=== PATIENT | female | born 1980 | race Caucasian/White ===

== ENCOUNTER 2016-05-23 11:36 | Outpatient (CLI) | payer MEDICAID ==
[2016-05-23 12:08] LABS: Cholesterol 223 mg/dL (< 200 Desired); HDL Cholesterol 32 mg/dL (>60 Neg Risk); Triglycerides 462 mg/dL (Less than 150)
== END 2016-05-23 11:37 | disposition home or self-care (01) ==
LOC: MADLABBHPM 11:36
PROVIDERS: ATTEND Family Medicine
DX: E78.5 Hyperlipidemia, unspecified (principal)
CPT/HCPCS: 36415; 80061

== ENCOUNTER 2016-10-17 12:16 | Outpatient (CLI) | payer OTHER ==
[2016-10-17 12:53] LABS: Cardiac Risk 6.7 (Less than 4.5)
[2016-10-17 13:01] LABS: #Basophils 0.1 thou/uL (0.0-0.2); #Eosinphils 0.2 thou/uL (0.0-0.7); #Monocytes 0.6 thou/uL (0.11-0.59); %Basophils 1.1 % (0.0-1.0); %Lymphocytes 33.4 % (21.0-51.0); %Monocytes 6.8 % (0.0-10.0); %Neutrophils 56.7 % (42.0-75.0); Hemoglobin 14.7 g/dL (12.0-16.0); Mean Corpuscular HGB CONC 32.9 g/dL (32.0-36.0); Mean Corpuscular Hemoglobin 30.3 pg (27.0-31.0); Platelet Count 274 thou/uL (130-400); Red Blood Cell (RBC) Count 4.84 mill/uL (4.20-5.40); White Blood Cell (WBC) Count 8.9 thou/uL (4.8-10.8)
== END 2016-10-17 12:17 | disposition home or self-care (01) ==
LOC: MADLABBHPM 12:16
PROVIDERS: ATTEND Family Medicine
DX: E78.5 Hyperlipidemia, unspecified (principal); R00.2 Palpitations
CPT/HCPCS: 36415; 80061; 84443; 85025; 93005; 93010

== ENCOUNTER 2017-05-10 00:29 | Emergency (ER) | payer MEDICAID, SELFPAY ==
[2017-05-10] MEDS ORDERED: Ketorolac Tromethamine 60 MG/2 ML VIAL ONE (00:55)
--- NOTE | 2017-05-10 08:29 | RAD ---
RIGHT FOOT 3 VIEWS: HISTORY: A 36-year-old female with a history of right foot pain following an injury. FINDINGS: Minimal soft tissue fullness over the anterior aspect of the forefoot. No fracture, dislocation, or other acute process. IMPRESSION: Unremarkable right foot. POS: [facility]
--- NOTE | 2017-05-10 08:31 | RAD ---
RIGHT TIBIA AND FIBULA 2 VIEWS: HISTORY: A 36-year-old female with a history of right lower leg pain following an injury. IMPRESSION: No fracture, dislocation, or other acute process. POS: [facility]
--- NOTE | 2017-05-10 08:33 | RAD ---
RIGHT WRIST 3 VIEWS: HISTORY: A 36-year-old female with a history of right wrist pain following an injury. IMPRESSION: No fracture, dislocation, or other significant acute osseous abnormality. POS: [facility]
== END 2017-05-10 02:00 | disposition home or self-care (01) ==
LOC: MADERS 00:29
DX: S63.501A Unspecified sprain of right wrist, initial encounter (principal); S93.601A Unspecified sprain of right foot, initial encounter; F41.9 Anxiety disorder, unspecified; W19.XXXA Unspecified fall, initial encounter
CPT/HCPCS: 96372; J1885

== ENCOUNTER 2017-11-10 15:33 | Outpatient (CLI) | payer OTHER ==
--- NOTE | 2017-11-10 17:22 | RAD ---
LEFT FOOT 3 VIEWS: Date: 11/10/17 HISTORY: Pain x3 weeks. History of injury. FINDINGS: Calcaneal spur at the insertion of the plantar fascia on the calcaneus is noted. Minimal arthritic ch anges of the first metatarsophalangeal joint are seen. There are no signs of fracture or dislocation. IMPRESSION: No evidence of acute injury. POS: [facility]
--- NOTE | 2017-11-10 17:27 | RAD ---
LEFT ANKLE 3 VIEWS: Date: 11/10/17 HISTORY: Ankle pain x3 weeks after injury. FINDINGS: There is some minimal spurring involving the medial malleolus. Joint space appears fairly well preser rogelio. There is no fracture or joint effusion. Calcaneal spur at the insertion of the plantar fascia is noted. IMPRESSION: No acute findings. POS: [facility]
== END 2017-11-10 15:34 | disposition home or self-care (01) ==
LOC: MADRAD 15:33
PROVIDERS: ATTEND Family Medicine
DX: M25.572 Pain in left ankle and joints of left foot (principal); M79.672 Pain in left foot